=== PATIENT | female | born 1980 | race Two or more races ===

== ENCOUNTER 2017-02-23 23:09 | Inpatient (IN) | payer SELFPAY ==
[~2017-02-23] VITALS: Ht 160 cm; Wt 104.0 kg
[2017-02-24 00:31] LABS: Urine RBC None Seen /hpf (0 - 4)
[2017-02-24 00:33] LABS: Basophils # (auto) 0.2 uL; Basophils % (auto) 1.4 % (0.0-2.0); DEFINITIVE VIEW TRANSMISSION; Eosinophils # (auto) 0.1 uL; Eosinophils % (auto) 0.3 % (0.0-7.0); Hemoglobin 12.4 g/dL (12.2-16.2); Lymphocytes # (auto) 1.8 uL; Lymphocytes % (auto) 10.7 % (10.0-50.0); Mean Corpuscular Hemoglobin 26.1 pg (28.0-32.0); Mean Corpuscular Hgb Conc. 32.6 g/dL (32.0-36.0); Mean Corpuscular Volume 80.1 fL (80.0-100.0); Mean Platelet Volume 9.4 fL (7.4-10.4); Monocytes # (auto) 0.3 uL; Monocytes % (auto) 1.6 % (0.0-12.0); Neutrophils # (auto) 14.6 uL; Platelet Count (auto) 334 10^3/uL (140-450); Red Cell Distribution Width 14.1 % (11.6-16.0); SUSPECT VIEW TRANSMISSION
[2017-02-24 00:38] LABS: Urine Bilirubin Negative (Negative); Urine Blood Negative /uL (Negative); Urine Color Yellow (Yellow); Urine Glucose Normal (Normal); Urine Ketone TRACE (Negative); Urine Mucus FEW (None Seen); Urine Nitrite Negative (Negative); Urine Squamous Epithelial Cell FEW /hpf (<5); Urine Urobilinogen Normal (Negative); Urine pH 6.5 (5.0-8.0)
[2017-02-24 00:45] LABS: INR 0.92 (0.9-1.15); Partial Thromboplastin Time 28.3 sec (22.64-33.71)
[2017-02-24 00:50] LABS: Albumin 3.4 g/dL (3.4-5.0); BUN/Creatinine Ratio 21.3; Calcium 8.7 mg/dL (8.5-10.1); Magnesium 1.9 mg/dL (1.6-2.6); Potassium 3.6 mmol/L (3.5-5.1)
[2017-02-24 00:52] LABS: Bilirubin, Total 0.3 mg/dL (0.2-1.0); Total Protein 8.4 g/dL (6.4-8.2)
[2017-02-24] MEDS ORDERED: SODIUM CHLORIDE 0.9% 500 ML IVB ONE (07:07)
[2017-02-24] MEDS ORDERED: ONDANSETRON HCL 4 MG/2 ML VIAL IV ONE (07:15)
[2017-02-24] MEDS ORDERED: HYDROmorphone HCL 2 MG/ML VL IV ONE (07:15)
[2017-02-24] MEDS ORDERED: cefTRIAXone 1GM/50ML D5W 50 ML IV ONE (11:00)
[2017-02-24] MEDS ORDERED: ONDANSETRON HCL 4 MG/2 ML VIAL IV PRN (11:15)
[2017-02-24] MEDS ORDERED: FAMOTIDINE (10MG/ML) 2ML VL IV ONE (11:15)
[2017-02-24] MEDS ORDERED: PIPERACILLIN-TAZO 4.5GM 100 ML IV ONE (11:15)
[2017-02-24] MEDS ORDERED: MORPHINE SULF INJ 2 MG/ML SYRINGE 1ML IV PRN (11:15)
[2017-02-24] MEDS: SODIUM CHLORIDE 0.9% 1,000 ML IV SCH ×2 (11:54→21:23)
[2017-02-24] MEDS ORDERED: metroNIDAZOLE 500MG/100ML 100 ML IV SCH (12:00)
[2017-02-24] MEDS: metroNIDAZOLE 500MG/100ML 100 ML IV SCH (18:00)
[2017-02-24] MEDS: FAMOTIDINE (10MG/ML) 2ML VL IV SCH (21:23)
[2017-02-24 22:00] VITALS: BP 120/69
[2017-02-25] MEDS: metroNIDAZOLE 500MG/100ML 100 ML IV SCH ×3 (01:36→18:05)
[2017-02-25] MEDS: SODIUM CHLORIDE 0.9% 1,000 ML IV SCH ×3 (03:40→20:22)
[2017-02-25 05:55] VITALS: BP 122/73
[2017-02-25] MEDS ORDERED: ceFAZolin 1GM/50ML D5W 50 ML IV ONE (06:48)
[2017-02-25 06:51] LABS: Basophils # (auto) 0 uL; Basophils % (auto) 0.2 % (0.0-2.0); DEFINITIVE VIEW TRANSMISSION; Eosinophils # (auto) 0 uL; Eosinophils % (auto) 0.4 % (0.0-7.0); Hematocrit 35.4 % (36.0-46.0); Hemoglobin 11.5 g/dL (12.2-16.2); Lymphocytes # (auto) 2.2 uL; Lymphocytes % (auto) 20.2 % (10.0-50.0); Mean Corpuscular Hemoglobin 26.3 pg (28.0-32.0); Mean Corpuscular Hgb Conc. 32.6 g/dL (32.0-36.0); Mean Corpuscular Volume 80.6 fL (80.0-100.0); Mean Platelet Volume 9.6 fL (7.4-10.4); Monocytes # (auto) 0.5 uL; Monocytes % (auto) 4.9 % (0.0-12.0); Neutrophils # (auto) 8.2 uL; Neutrophils % (auto) 74.3 % (37.0-80.0); Platelet Count (auto) 292 10^3/uL (140-450); Red Cell Distribution Width 15.3 % (11.6-16.0)
[2017-02-25] MEDS ORDERED: SUCCINYLCHOLINE CHLORIDE 20 MG/ML 10ML VIAL IV ONE (06:57)
[2017-02-25] MEDS ORDERED: ROCURONIUM 10MG/ML 10ML VIAL IV ONE (07:00)
[2017-02-25] MEDS ORDERED: MIDAZOLAM HCL 1MG/1ML-2 ML VIAL ONE (07:00)
[2017-02-25] MEDS ORDERED: MEPERIDINE HCL (50 MG/ML) 1 ML VIAL ONE (07:00)
[2017-02-25] MEDS ORDERED: PROPOFOL 10 MG/ML 20 ML IV ONE ×2 (07:00→07:13)
[2017-02-25] MEDS ORDERED: SODIUM CHLORIDE LOCK 20 ML ONE (07:00)
[2017-02-25] MEDS ORDERED: fentaNYL CITRATE 100 MCG/2 ML VL ONE (07:00)
[2017-02-25 07:14] LABS: Potassium 3.2 mmol/L (3.5-5.1)
[2017-02-25 07:18] LABS: Albumin 2.8 g/dL (3.4-5.0); BUN/Creatinine Ratio 13.5; Calcium 7.9 mg/dL (8.5-10.1)
[2017-02-25 07:20] LABS: Bilirubin, Total 0.3 mg/dL (0.2-1.0); Total Protein 7.4 g/dL (6.4-8.2)
[2017-02-25] MEDS ORDERED: KETOROLAC TROMETH 60MG/2ML VIAL IM ONE (08:02)
[2017-02-25] MEDS ORDERED: GLYCOPYRROLATE 0.2 MG/ML 1ML VIAL ONE (08:02)
[2017-02-25] MEDS ORDERED: NEOSTIGMINE 1 MG/ML INJ (10mg/10ML VIAL) ONE (08:02)
[2017-02-25] MEDS ORDERED: METOCLOPRAMIDE HCL 5MG/ml INJ 2ml VIAL IV ONE (09:00)
[2017-02-25] MEDS ORDERED: KETOROLAC TROMETH 30 MG/ML 1ML VIAL IV ONE (09:00)
[2017-02-25] MEDS ORDERED: HYDROmorphone HCL 2 MG/ML VL IV PRN (09:00)
[2017-02-25] MEDS: FAMOTIDINE (10MG/ML) 2ML VL IV SCH ×2 (11:13→21:38)
[2017-02-25 13:00] VITALS: BP 108/63
[2017-02-25] MEDS: cefTRIAXone 1GM/50ML D5W 50 ML IV SCH (14:08)
[2017-02-25 16:54] VITALS: BP 114/57
[2017-02-25 22:00] VITALS: BP 124/67
[2017-02-26] MEDS: metroNIDAZOLE 500MG/100ML 100 ML IV SCH ×2 (01:31→09:57)
[2017-02-26] MEDS: SODIUM CHLORIDE 0.9% 1,000 ML IV SCH ×2 (03:01→12:03)
[2017-02-26 05:30] VITALS: BP 129/66
[2017-02-26] MEDS: cefTRIAXone 1GM/50ML D5W 50 ML IV SCH (08:55)
[2017-02-26 09:00] VITALS: BP 137/72
[2017-02-26] MEDS: FAMOTIDINE (10MG/ML) 2ML VL IV SCH (09:56)
[2017-02-26 13:00] VITALS: BP 128/71
[2017-02-26 14:17] VITALS: BP 128/71
[2017-02-26 14:44] VITALS: BP 128/71
== END 2017-02-26 16:25 | disposition home or self-care (01) | DRG 418 ==
LOC: ER 23:09 → OVERFLOW 23:10 → TELE-E-ADS 02-24 15:51 → WEST WING 02-24 18:54
PROVIDERS: ADMIT Internal Medicine; ATTEND Internal Medicine Pulmonary Disease
PROC: 0FT44ZZ Resection of Gallbladder, Percutaneous Endoscopic Approach (ICD-10-PCS; principal; 2017-02-25 07:30)
DX: K80.12 Calculus of gallbladder with acute and chronic cholecystitis without obstruction (principal); Z68.41 Body mass index [BMI] 40.0-44.9, adult; E86.0 Dehydration; K76.0 Fatty (change of) liver, not elsewhere classified; E66.01 Morbid (severe) obesity due to excess calories; K57.30 Diverticulosis of large intestine without perforation or abscess without bleeding
CPT/HCPCS: 36415; 74176; 76705; 80053; 81001; 82150; 82247; 83690; 83735; 84702; 85025; 85610; 85730; 86850; 86900; 86901; 87040; 94761; 96374; 96375; J0330; J0690; J0696; J1885; J2250; J2405; J2704; J3490